=== PATIENT | male | born 1930 | race African-American/Black ===

== ENCOUNTER 2017-06-10 01:44 | Emergency (ER) | payer MEDICARE, MEDICAID ==
[~2017-06-10] VITALS: Ht 165.1 cm; Wt 63.0 kg
[2017-06-10] MEDS ORDERED: FAMOTIDINE 20MG/2ML VIAL IV STA (02:19)
[2017-06-10 02:33] LABS: HEMATOCRIT. 39.9 % (42.0-52.0); HEMOGLOBIN. 13.9 g/dL (14.0-18.0); MEAN CORPUSCULAR HEMOGLOBIN 30.5 pg (28.0-32.0); MEAN CORPUSCULAR VOLUME 87.4 fL (80.0-94.0); MEAN PLATELET VOLUME 9.8 fl (7.4-10.4); PLATELET 95 x1000/uL (130-400); RED BLOOD CELL COUNT 4.57 mill/uL (4.7-6.1); RED CELL DISTRIBUTION WIDTH 12.9 % (11.6-14.6)
[2017-06-10 02:39] LABS: INR 1.1
[2017-06-10 02:50] LABS: CHLORIDE 106 mEq/L (98-107); ETHANOL BLOOD < 10 mg/dL; TROPONIN I < 0.02 ng/mL (0.00-0.04)
[2017-06-10 02:51] LABS: BG BASE EXCESS -1.6 mmol/L (-2.0-2.0); BG CARBOXYHEMOGLOBIN 0.6 % (0.5-1.5); BG DEOXYHEMOGLOBIN 3.8 % (0.0-5.0); BG FRACTION INSPIRED OXYGEN 21; BG HCO3 ACT 22.8 mmol/L (22.0-26.0); BG METHEMOGLOBIN 0.3 % (0.0-1.5); BG OXYGEN SATURATION 96.2 % (92.0-98.5); BG OXYHEMOGLOBIN 95.3 % (94.0-97.0); BG PCO2 37.5 mmHg (35.0-45.0); BG PH 7.401 (7.350-7.450); BG PO2 82.1 mmHg (75.0-100.0); BG SAMPLE SITE RIGHT BRACHIAL; BG TOTAL HEMOGLOBIN 14.5 g/dL (12.0-18.0); BG VENT MODE ROOM AIR
[2017-06-10 02:56] LABS: CARBON DIOXIDE 29 mEq/L (21-32); CREATINE KINASE 101 IU/L (39-308); LDL CHOLESTEROL 94 mg/dL (5-100)
[2017-06-10 04:22] VITALS: BP 124/74
[2017-06-10 04:35] LABS: PLATELET ESTIMATE DECREASED
== END 2017-06-10 04:31 | disposition home or self-care (01) ==
LOC: ER 01:44
DX: F03.90 Unspecified dementia, unspecified severity, without behavioral disturbance, psychotic disturbance, mood disturbance, and anxiety (principal); H40.9 Unspecified glaucoma; Z87.19 Personal history of other diseases of the digestive system; R41.82 Altered mental status, unspecified
CPT/HCPCS: 36415; 36600; 70450; 71010; 74176; 80053; 82375; 82550; 82805; 82962; 83605; 83721; 83880; 84484; 85025; 85610; 93005; 96374; 99285; G0482; J3490